=== PATIENT | female | born 1990 | race Caucasian/White ===

== ENCOUNTER 2019-03-05 00:01 | Outpatient (CLI) | payer OTHER ==
[~2019-03-05] VITALS: Ht 162.6 cm; Wt 80.5 kg
--- NOTE | 2019-03-05 00:10 | NUR ---
G3L0 at 40 weeks and 1 day arrives to unit with complaint of contractions every 5 minutes. Pt states she was woken up to the contractions and has been unable to sleep through them. Pt reports having bloody show, good movement and denies loss of luid. Pt denies any problems this . Denies headaches, blurry vision, or RUQ pain. Pt oriented to room, call light within reach, bed in low and locked position. US and toco explained and applied. Plan of care reviewed with patient and spouse. Admission assessment started. Vital signs obtained. 0020 - SVE 2-3/-3
[2019-03-05 00:30] VITALS: BP 138/90; PULSE 70; TEMP 98.1
[2019-03-05] MEDS ORDERED: PRENATAL MVI (00:33)
--- NOTE | 2019-03-05 00:53 | NUR ---
Category 1 FHR tracing obtained. Pt wishes to be off of monitor and ambulate in room. Monitors removed. Plan of care reviewed.
[2019-03-05 00:55] VITALS: BP 131/81; PULSE 62
--- NOTE | 2019-03-05 01:28 | NUR ---
Category 1 FHR tracing obtained. Pt wanting to be off monitor to ambulate in room. Monitors removed. Plan of care reviewed.
--- NOTE | 2019-03-05 02:25 | NUR ---
SVE /-3, bloody show and membranes intact. Cervix unchanged over 1 hour. Discussed plan of care with patient and spouse. Pt and spouse agreeable to discharge at this time.
--- NOTE | 2019-03-05 02:45 | NUR ---
Discharge instructions reviewed with patient and spouse. Return precautions discussed. Pt and spouse verbalized understanding. Pt seen ambulating off unit with spouse.
== END 2019-03-05 02:45 | disposition home or self-care (01) ==
LOC: LDRO 00:01
DX: O62.9 Abnormality of forces of labor, unspecified (principal); Z3A.40 40 weeks gestation of pregnancy

== ENCOUNTER 2019-03-05 06:54 | Inpatient (IN) | payer OTHER ==
[2019-03-05] VITALS (31 sets, daily range): BP systolic 99–155; BP diastolic 61–89; PULSE 18–134; TEMP 97.2–98.1
[~2019-03-05] VITALS: Ht 162.6 cm; Wt 80.5 kg
[~2019-03-05 06:54] MED LIST: PRENATAL MVI
--- NOTE | 2019-03-05 07:00 | NUR ---
Pt presents ambulatory to unit from ER with and changed into gown. EFM explained and applied, vitals taken. Pt states she was in last night for labor check, has had increasing intensity with contractions through the night and increasing bloody show. Denies leaking of fluid, reports good movement. SVE 3-4/90/0. Contractions noted every 2-3 minutes. See physician notification.
--- NOTE | 2019-03-05 07:30 | NUR ---
PATIENT RESTING IN BED BREATHING THROUGH CONTRACTIONS. PATIENTS IV STARTED. CONSENTS SIGNED. ASSESMENT COMPLETE, PATIENT REQUESTS EPIDURAL REPORT FROM MORRIS VILLA
[2019-03-05 08:01] LABS: BASO % 0.3 % (0.0-2.0); EOS % 0.1 % (0-4.0); GRAN # 9.7 (1.4-6.5); GRAN % 82.9 % (42.2-75.2); HEMATOCRIT 38.4 % (37.0-47.0); HEMOGLOBIN 13.4 g/dl (12.5-16.0); LYMPH # 1.3 (1.2-3.4); LYMPH % 10.9 % (20.0-51.0); MEAN CELL VOLUME 85 fl (80.0-100.0); MEAN CORPUSCULAR HEMOGLOBIN 30 pg (27.0-31.0); MEAN CORPUSCULAR HGB CONC 35 g/dl (33.0-37.0); MEAN PLATELET VOLUME 12.1 fl (7.4-10.4); MONO # 0.6 (0.1-0.6); MONO % 5.2 % (1.7-9.3); PLATELET COUNT 141 K/mm3 (130-400); RED BLOOD COUNT 4.51 M/mm3 (4.10-5.30); REDCELL DISTRIBUTION WIDTH-CV 12.7 % (11.5-14.5)
[2019-03-06 01:40] VITALS: BP 121/79; PULSE 76; TEMP 97.9
[2019-03-06 08:10] VITALS: BP 125/88; PULSE 73; TEMP 97.6
--- NOTE | 2019-03-06 10:52 | NUR ---
Baby was having a hearing test so I was not able to see the patient.
[2019-03-06 16:34] VITALS: BP 121/69; PULSE 61; TEMP 98.8
[2019-03-06 21:00] VITALS: BP 117/78; PULSE 67; TEMP 98
[2019-03-07 07:45] VITALS: BP 119/76; PULSE 73; TEMP 98.7
[2019-03-07] MEDS ORDERED: PERCOCET 325 MG1 TA2 PO (08:31)
[2019-03-07] MEDS ORDERED: IBU800 M1 PO (08:31)
== END 2019-03-07 12:00 | disposition home or self-care (01) | DRG 807 ==
LOC: LDRO 06:54 → LDR 07:18 → OB 15:59
PROVIDERS: Student in an Organized Health Care Education/Training Program; ADMIT Obstetrics & Gynecology
PROC: 10E0XZZ Delivery of Products of Conception, External Approach (ICD-10-PCS; principal; 2019-03-05)
PROC: 10907ZC Drainage of Amniotic Fluid, Therapeutic from Products of Conception, Via Natural or Artificial Opening (ICD-10-PCS; 2019-03-05)
PROC: 0W8NXZZ Division of Female Perineum, External Approach (ICD-10-PCS; 2019-03-05)
PROC: 0HQ9XZZ Repair Perineum Skin, External Approach (ICD-10-PCS; 2019-03-05)
DX: O48.0 Post-term pregnancy (principal); Z37.0 Single live birth; Z3A.40 40 weeks gestation of pregnancy; O76 Abnormality in fetal heart rate and rhythm complicating labor and delivery; O77.0 Labor and delivery complicated by meconium in amniotic fluid; O71.82 Other specified trauma to perineum and vulva
CPT/HCPCS: J2590; J2795; J7120

== ENCOUNTER → 2019-03-08 | Outpatient (CLI) | payer OTHER ==
[~2019-03-08] MED LIST changes: +IBU800 M1 PO; +PERCOCET 325 MG1 TA2 PO
--- NOTE | 2019-03-08 11:51 | NUR ---
Pt, Izabel Olson, presents for outpatient consult with 3 day old baby girl, Noe Olson, and her spouse, Darryl Olson. Pt reports baby not latching well, and no bowel movements > 24 hours. Noe was born on [birth year] by and weighed 7# 6.7oz (3365 gms). Discharge weight was 7# 2oz (3235 gms). BM was noted at time of and x1 in the first 24 hours of life, none since. Voids remain WNL, described as red. Per 's chart review, she did not nurse well in the hosptial r/t flat nipples , unable to latch without the nipple shield, effort with shield was limited, and on day of discharge was introduced to SNS, taking only 3-4ml per offering. Since discharge has become less interested in feedings, does not remain latched even with shield and SNS. She had a bilirubin test prior to this consult and the level is at 9.9. Pt states she is just starting to feel milk volume increase. LC attempt to assist latch, unable to get nipple everted enough to get latched, nipple shield placed. Nipple does extend into the shield with inversion of shield during placement. nurses 15/10 minutes, without measureable weight gain after feeding. provided formula by bottle, takes 22ml. POC: 3-step feeding plan: 1. offer breast if desired however with baby not transfering, may consider to do [id number] after baby is fed. 2. Supplement EBM as available, formula until then. Intake guidelines provided for the next several days. 3. Pump bilaterally, 15 min per session. Milk storage guidelines and feeding plan provided. Pt and spouse verbalize understanding. F/U: Infant has an appointment with Dr. Mayorga tomorrow, anticipate follow up at walk-in clinic next week. Questions invited and answered.
== END ==
LOC: LAC 10:14
DX: Z39.1 Encounter for care and examination of lactating mother (principal); Z71.89 Other specified counseling

== ENCOUNTER → 2019-03-16 | Outpatient (CLI) | payer OTHER ==
--- NOTE | 2019-03-16 12:03 | NUR ---
Pt, Izabel Olson presents for outpatient walk-in clinic with 11 day old baby girl, Noe Olson for a evaluation and evaluation of sore nipples. Noe was born on [birth year] and weighed 7# 6.7oz (3365 gms). Pt was seen in consult on 03/08/19 and Noe's weight was 6#13.8oz (3113gms). She did not breastfeed at that time, pt was advised to work with , pump and bottle feed. Because of flat nipples pt is using a nipple shield. Today Noe weighs 736.2oz (3352 gms). She currently nurses q 2-3 hours with a nipple shield and receives 2oz EBM TID. Voids and stools are WNL for breastfed baby. Pt continues to pump 3-4 x daily after , collecting 3oz per session. At this consult, pt latches Noe with the nipple shield on the left breast. She c/o sore nipples. Pt is advised to keep Noe closer even on the shield so the nipple is not getting compressed inside the sheild. This is more comofortable. We attempt to latch Noe to the left side without the shield after she has nursed for a few minutes and the nipple is elongated but she is not able to pull it in. On the right side, pt is able to latch Noe directly as LC holds Noe's chin down for the first few minutes of latching. Pt states it was painful initially, but then improved. No breakdown noted on the nipples but areas of blanching in the center of each nipple, more prominate after feedings. Discussed blanching from nipple compression and possible bleb on the right nipple. Handouts will be emailed to pt re: bleb and treatment. Pt also advised to follow up with Dr. Melchor re: Jan's Nipple Cream. After nursing Noe has a weight gain of 1.7oz from the left and 1.2oz from the right for a total intake of 2.9oz (82 gms). Discussed offer the breast a "third" time at the feedings Noe does not seem satisfied and if that does not get her satisfied, supplement 1oz EBM. POC: Breastfeed ad cristiano, working on latch without nipple shield. Request Montoya's Nipple Cream from Dr. Melchor for soreness. Monitor for bleb on right side. F/U: Anticipate at clinic next week, with Dr. Jain as scheduled. Questions invited and answered.
== END ==
LOC: OLC 11:28
DX: Z39.1 Encounter for care and examination of lactating mother (principal); Z71.89 Other specified counseling

== ENCOUNTER 2022-06-06 06:14 | Inpatient (IN) | payer OTHER ==
[2022-06-06] VITALS (19 sets, daily range): BP systolic 115–144; BP diastolic 59–86; PULSE 55–87; TEMP 97.4–118
[~2022-06-06] VITALS: Ht 162.6 cm; Wt 78.2 kg
[2022-06-06] MEDS ORDERED: FLONASEALLERGY NS (06:58)
[2022-06-06] MEDS ORDERED: ZYRTEC 10MG10 MG PO (06:59)
[2022-06-06 08:31] LABS: BASO % 0.4 % (0.0-2.0); EOS # 0.1 K/mm3 (0.0-0.7); GRAN # 8.8 K/mm3 (1.4-6.5); GRAN % 80.6 % (42.2-75.2); HEMOGLOBIN 12.5 g/dl (12.5-16.0); LYMPH # 1.2 K/mm3 (1.2-3.4); LYMPH % 10.9 % (20.0-51.0); MEAN CELL VOLUME 85 fl (80.0-100.0); MEAN CORPUSCULAR HEMOGLOBIN 30 pg (27-31); MEAN CORPUSCULAR HGB CONC 35 g/dl (33.0-37.0); MEAN PLATELET VOLUME 11.4 fl (7.4-10.4); MONO # 0.7 K/mm3 (0.1-0.6); MONO % 6.4 % (1.7-9.3); PLATELET COUNT 156 K/mm3 (130-400); RED BLOOD COUNT 4.15 M/mm3 (4.10-5.30); REDCELL DISTRIBUTION WIDTH-CV 13.2 % (11.5-14.5)
[2022-06-06 08:40] LABS: HEMATOCRIT 35.3 % (37.0-47.0)
--- NOTE | 2022-06-06 10:05 | NUR ---
DELMA CALLED AT 0955. TO ROOM AT 1005. PATIENT IN SITTING POSITION. BOLUS INFUSING. TEST DOSE AT 1010. PATIENT TOLERATED WELL. VSS. PATIENT POSITIONED IN A WEDGE LEFT SEMI FOWLERS. PATIENT REPORTS SHORTER CTXS. WILL CONTINUE TO MONITOR.
--- NOTE | 2022-06-06 10:54 | NUR ---
PATIENT RECEIVED EPIDURAL AT 1010, REDOSED BY DELMA AT 1030, PATIENT CALLED OUT AT 1033 COMPLAINING OF PRESSURE. PATIENT SVE COMPLETE AND +1 STATION. JAMEY CALLED AT 1034, HEADING THIS WAY. TEAM CALLED AND ALERTED OF IMINENT DELIVERY. DR CONCEPCION HERE AT 1048. PUSHED WITH 3 CONTRACTIONS AND A LIVE FEMALE DELIVERED SPONTANEOULSY AT 1054. APGARS 7, 9 ,9. PLACENTA DELIVERED SPONTANEOULSY AT 1056 AND BOLUS OF PITOCIN STARTED. DELIVERY QBL WAS 199. BLEEDING MODERATE AND DR CONCEPCION NOTIFIED. WILL CONTINUE TO MONITOR
[2022-06-07 01:05] VITALS: BP 121/63; PULSE 68; TEMP 97.3
[2022-06-07 05:46] LABS: HEMOGLOBIN 11.2 g/dl (12.5-16.0)
[2022-06-07 05:49] LABS: HEMATOCRIT 31.8 % (37.0-47.0)
[2022-06-07 08:00] VITALS: BP 108/71; PULSE 64; TEMP 97.8
--- NOTE | 2022-06-07 08:11 | NUR ---
0750 THIS NURSE ASSISTED PATIENT WITH AND ASSESSED LATCH. LATCH APPEARED TO BE GOOD. PATIENT DOES HAVE FLAT NIPPLES AND HAS BEEN UTILIZING A NIPPLE SHIELD. PATIENT STATES THAT HER BREAST ARE SORE AND CREAM WAS GIVEN AT THIS TIME.
--- NOTE | 2022-06-07 08:44 | NUR ---
Initial visit; Parents thanked Candle Pourer for offering Congratulations for the of their daughter and offering "Special Blessings" for her. Candle Pourer thanked family for choosing [facility].
== END 2022-06-07 13:15 | disposition home or self-care (01) | DRG 807 ==
LOC: LDR 06:14 → OB 11:13
PROVIDERS: ADMIT Obstetrics & Gynecology
PROC: 10E0XZZ Delivery of Products of Conception, External Approach (ICD-10-PCS; principal; 2022-06-06)
PROC: 3E033VJ Introduction of Other Hormone into Peripheral Vein, Percutaneous Approach (ICD-10-PCS; 2022-06-06)
DX: O80 Encounter for full-term uncomplicated delivery (principal); Z37.0 Single live birth; Z3A.39 39 weeks gestation of pregnancy
CPT/HCPCS: J2210; J2401; J2590; J2795; J7120